=== PATIENT | female | born 1960 | race Caucasian/White ===

== ENCOUNTER → 2018-06-24 15:47 | Outpatient (CLI) | payer BC, SELFPAY ==
[2018-06-24 17:45] LABS: AST(SGOT) 15 U/L (15-37); Alanine Aminotransfer ALT/SGPT 25 U/L (13-56); Albumin, Serum 3.8 g/dL (3.2-5.0); Alkaline Phosphatase 125 U/L (45-117); Bilirubin, Direct 0.07 mg/dL (0.00-0.30); Globulin 4.2 g/dL (2.2-4.2)
== END ==
LOC: MTLAB 15:50
PROVIDERS: Family Provider Family Medicine; PCP Family Medicine; Referring Provider Internal Medicine Rheumatology; Visit Provider Internal Medicine Rheumatology
DX: M06.4 Inflammatory polyarthropathy (principal); M79.7 Fibromyalgia; M21.40 Flat foot [pes planus] (acquired), unspecified foot; I10 Essential (primary) hypertension; Q21.1 Atrial septal defect; I47.1 Supraventricular tachycardia; H35.073 Retinal telangiectasis, bilateral; J30.9 Allergic rhinitis, unspecified; K21.9 Gastro-esophageal reflux disease without esophagitis; F41.9 Anxiety disorder, unspecified; Z79.899 Other long term (current) drug therapy
CPT/HCPCS: 36415; 80076

== ENCOUNTER → 2018-10-14 15:24 | Outpatient (CLI) | payer BC, SELFPAY ==
--- NOTE | 2018-10-14 15:28 | RAD_ITS ---
STUDY: X-RAY - RIGHT KNEE REASON FOR EXAM: Female, 57 years old. Right knee pain TECHNIQUE: 4 view(s) of the knee. COMPARISON: None. FINDINGS: There is no evidence of fracture or dislocation. There are mild tricompartmental degenerative changes. There are no radiodense foreign bodies. RAD/Knee 4 or More Views IMPRESSION: No fracture or dislocation. Mild degenerative change. Electronically Signed: Last Palma, at 16:22 EDT Tel , Service support ,
[2018-10-14 16:37] LABS: Pathologist Comment May follow
[2018-10-14 17:43] LABS: Synovial Fld Mononuclear WBC % 81.4 %; Synovial Fld Polynuclear WBC # 0.014 10^3/uL; Synovial Fld Polynuclear WBC % 18.6 %
[2018-10-14 20:27] LABS: Lymph 38 %; Monocyte /Synovial Fluid 23 %; Neutrophil 19 % (0-25); Other Cell /Synovial Fluid 20 %
[2018-10-14 20:28] LABS: AUTO B FLUID DILUENT BKGD CT WBC <0.1 RBC <0.01 (W<.1,R<.01); Appearance /Synovial Fluid Sl Cl (CLEAR); Color / Synovial Fluid Yellow (Pale Yellow); Source / Synovial Fluid RIGHT KNEE; Source- Body Fluid SYNOVIAL
[2018-10-14 20:29] LABS: Body Fluid QC Type(s) BF1Q,BF2Q; RBC /Synovial Fluid 991 /mm3 (0); Synovial Fld Mononuclear WBC # 0.061 10^3/ul
[2018-10-15 15:22] LABS: Pathologist Review Reviewed
== END ==
LOC: MTLAB 15:26 → MTRAD 15:27
PROVIDERS: Family Provider Family Medicine; PCP Family Medicine; Referring Provider Internal Medicine Rheumatology; Visit Provider Internal Medicine Rheumatology
DX: M06.4 Inflammatory polyarthropathy (principal); M21.40 Flat foot [pes planus] (acquired), unspecified foot; I10 Essential (primary) hypertension; M79.7 Fibromyalgia; M25.561 Pain in right knee; Q21.1 Atrial septal defect; I47.1 Supraventricular tachycardia; H35.073 Retinal telangiectasis, bilateral; J30.9 Allergic rhinitis, unspecified; K21.9 Gastro-esophageal reflux disease without esophagitis; F41.9 Anxiety disorder, unspecified; Z79.899 Other long term (current) drug therapy
CPT/HCPCS: 73564; 87070; 87075; 87205; 89050; 89051; 89060